=== PATIENT | female | born 1945 | race Two or more races ===

== ENCOUNTER 2023-05-27 14:07 | Outpatient (CLI) | payer OTHER ==
[~2023-05-27 14:07] MED LIST: DICLOFENAC POTA50 MG PO
== END 2023-05-27 14:13 | disposition home or self-care (01) ==
LOC: RAD 14:07
PROVIDERS: ATTEND Physical Medicine & Rehabilitation
DX: M53.3 Sacrococcygeal disorders, not elsewhere classified (principal); M54.50 Low back pain, unspecified

== ENCOUNTER 2024-02-19 15:10 | Outpatient (CLI) | payer OTHER | END 2024-02-19 15:15 | disposition home or self-care (01) | LOC: RAD 15:10 | PROVIDERS: ATTEND Family Medicine | DX: R05.3 Chronic cough (principal); J45.991 Cough variant asthma ==

== ENCOUNTER 2024-05-03 15:51 | Outpatient (CLI) | payer OTHER | END 2024-05-03 15:56 | disposition home or self-care (01) | LOC: RAD 15:51 | PROVIDERS: ATTEND Family Medicine | DX: M54.12 Radiculopathy, cervical region (principal) ==